=== PATIENT | female | born 1970 | race Caucasian/White ===

== ENCOUNTER 2022-09-20 20:07 | Emergency (ER) | payer SELFPAY ==
--- NOTE | ~2022-09-20 | XR_ITS ---
EXAMINATION: XR chest 1V 09/20/2022 21:22 INDICATION: CVA PROCEDURE: AP view of the chest COMPARISON: No prior studies for comparison. FINDINGS: The lungs are clear. The cardiomediastinal silhouette is within normal limits. There are no pleural effusions. There is no pneumothorax suspected. IMPRESSION: 1: NO ACUTE CARDIOPULMONARY DISEASE. Reviewed, dictated and finalized at location A.
--- NOTE | ~2022-09-20 | CT_ITS ---
EXAMINATION: CTA brain carotid DATE: 09/20/2022 21:18 CDT INDICATION: CVA TECHNIQUE: Computed tomographic angiography (CTA) of the head was performed without and with 100 mL O mnipaque-350 intravenous contrast. CTA of the neck was performed with intravenous contrast. The dose- length product was 906.95 mGy-cm. Maximum intensity projection and volume rendered 3D-reconstructions were created by the technologist on a separate workstation. COMPARISON: CT dated 09/20/2022. FINDINGS: HEAD CTA: The anterior, middle and posterior cerebral arteries are symmetric. The anterior communicat ing artery is present. No evidence for significant stenosis, occlusion or aneurysm. The vertebral art eries are codominant. NECK CTA: No cervical lymphadenopathy. Aorta is within normal limits. No evidence for vascular occlus ion, significant stenosis or dissection. Lung apices are unremarkable. There is 0% stenosis of the proximal right internal carotid artery relative to normal distal artery l umen diameter (NASCET criteria). There is 0% stenosis of the proximal left internal carotid artery re lative to normal distal artery lumen diameter. IMPRESSION: 1. 0% stenosis of the proximal right internal carotid artery relative to normal distal artery lumen d iameter (NASCET criteria). 2. 0% stenosis of the proximal left internal carotid artery relative to normal distal artery lumen di ameter. 3: No significant abnormality of the intracranial arteries. If there is continuing concern for infar ction, recommend correlation with MRI. Reviewed, dictated and finalized at location A. IMPRESSION: 1. 0% stenosis of the proximal right internal carotid artery relative to normal distal artery lumen diameter (NASCET criteria). 2. 0% stenosis of the proximal left internal carotid artery relative to normal distal artery lumen diameter. 3: No significant abnormality of the intracranial arteries. If there is contin uing concern for infarction, recommend correlation with MRI.
--- NOTE | ~2022-09-20 | CT_ITS ---
EXAMINATION: CT BRAIN W/O DATE: 09/20/2022 20:23 INDICATION: CVA. TECHNIQUE: Computed tomography (CT) of the head was performed without intravenous contrast. The dose- length product was 605.33 mGy-cm. Automated exposure control and iterative reconstruction technique w ere employed. COMPARISON: No prior studies for comparison. FINDINGS: Normal brain parenchymal volume for age. Normal kyle-white differentiation. No acute intrac ranial hemorrhage, infarction, mass or mass effect. No ventriculomegaly or midline shift. Midline sagittal images demonstrate a normal corpus callosum, c raniovertebral junction and sella turcica. Basilar cisterns are patent. Paranasal sinuses and mastoids are pneumatized. No depressed skull fractures. IMPRESSION: 1. No acute intracranial abnormality. As per stroke protocol, I called these results to emergency room, discussed with Dr. Kerwin Suarez MD at 09/20/2022 20:25 CDT. Reviewed, dictated and finalized at location A. IMPRESSION: 1. No acute intracranial abnormality. As per stroke protocol, I called these results to emergency room, discussed wit h Dr. Kerwin Suarez MD at 09/20/2022 20:25 CDT.
[2022-09-20 20:21] VITALS: BP 143/90; PULSE 84; RESP 18; TEMP 36.7; O2SAT 100
--- NOTE | 2022-09-20 20:25 | ECG_ITS ---
Measurements Intervals Pinon Rate: 69 P: 30 NC: 164 QRS: 16 QRSD: 82 T: 40 QT: 369 QTc: 398 Interpretive Statements SINUS RHYTHM LOW QRS VOLTAGE IN PRECORDIAL LEADS [QRS DEFLECTION < 1.0 mV IN CHEST LEADS] OTHERWISE NORMAL ELECTROCARDIOGRAM NO PREVIOUS ECG AVAILABLE FOR COMPARISON Electronically Signed On 09-21-2022 7:19:27 CDT by Wu Boyd M.D.
[2022-09-20 20:37] LABS: Basophils Percent Auto 0.8 % (0.2-1.2); Eosinophils Absolute Auto 0.1 K/mm3 (0-0.3); Eosinophils Percent Auto 3.7 % (0-4.4); Hematocrit 39.7 % (37.0-47.0); Hemoglobin 12.9 g/dL (12.0-15.0); Immature Granulocyte Absolute 0.01 K/mm3 (0.00-0.031); Immature Granulocyte Percent A 0.3 % (0-0.5); Lymphocytes Absolute Auto 1.58 K/mm3 (0.9-3.2); Lymphocytes Percent Auto 44.5 % (18.3-44.2); Mean Corpuscular HGB Conc 32.5 g/dl (32-36); Mean Corpuscular Hemoglobin 29.6 pg (26-34); Mean Corpuscular Volume 91.1 fl (80-100); Mean Platelet Volume 9.9 fl (7.4-10.4); Monocytes Absolute Auto 0.6 K/mm3 (0.1-0.6); Monocytes Percent Auto 15.8 % (2.6-8.5); Neutrophils Absolute Auto 1.2 K/mm3 (1.3-6.7); Neutrophils Percent Auto 34.9 % (45.5-73.1); Platelet Count Result 232 k/mm3 (150-375); Red Blood Count 4.36 M/mm3 (4.2-5.4); Red Cell Distribution Width 12.4 % (11.5-14.5); White Blood Count 3.6 K/mm3 (4.5-10.0)
[2022-09-20 20:38] VITALS: PULSE 80; RESP 15
[2022-09-20 20:49] LABS: Alanine Aminotransferase 24 U/L (6-35); Albumin Level 4.1 g/dL (3.5-5.1); Alkaline Phosphatase 102 U/L (38-126); Anion Gap 7 mmol/L (8-16); Aspartate Amino Transferase 30 U/L (14-36); Bilirubin,Total 0.4 mg/dL (0.2-1.3); Blood Urea Nitrogen 13 mg/dL (7-17); Calcium 9.5 mg/dL (8.4-10.2); Carbon Dioxide 28 mmol/L (22-30); Chloride 101 mmol/L (98-107); Estimated Glomerular Filt Rate > 60; Glucose 123 mg/dL (65-110); Potassium 3.7 mmol/L (3.4-5.0); Sodium 136 mmol/L (137-145)
[2022-09-20 20:50] LABS: INR 0.9; Prothrombin Time 12.1 Seconds (11.1-14.7)
[2022-09-20 20:51] LABS: Partial Thromboplastin Time 27.6 SECONDS (22.3-36.8)
[2022-09-20 20:56] LABS: Glucose Point of Care 114 mg/dl (65-105)
[2022-09-20 21:02] VITALS: PULSE 69; RESP 19; O2SAT 98
[2022-09-20 21:04] LABS: Troponin I < 0.012 ng/mL (0.000-0.034)
[2022-09-20 21:13] LABS: Amphetamine Screen Urine Negative (Negative); Barbiturate Screen Urine Negative (Negative); Benzodiazepines Screen Urine Negative (Negative); Cannabinoid Screen Urine Positive (Negative); Cocaine Screen Urine Negative (Negative); Methadone Screen Urine Negative (Negative); Opiate Screen Urine Negative (Negative); Phencyclidine Screen Urine Negative (Negative)
[2022-09-20 21:33] VITALS: PULSE 86; RESP 17
[2022-09-20 21:42] LABS: Pregnancy On Board Control Positive; Urine Pregnancy Test Negative
--- NOTE | 2022-09-20 21:43 | ED.GENADULT ---
HPI - General Adult General Chief complaint: Neuro Symptoms/Deficit Stated complaint: cva symptoms Time Seen by Provider: 09/20/22 20:16 History of Present Illness HPI narrative: 51-year-old female presented the emergency department for evaluation of altered mental status. Patient states that she had dinner at approximately 6 PM and at 645 while she was using the computer she started having some increased difficulty with reading. Patient states that she also felt confused and had some generalized weakness. Upon arrival to the ED patient stated she felt strange but denies any focal numbness or weakness. Patient was able to read and participate in the stroke exam with no deficit. Patient did states she was unsure if she was sleeping or if she was awake. Review of Systems Review of Systems: All systems reviewed & are unremarkable except as noted in HPI and below Exam Narrative: APPEARANCE: Well appearing, no pain, no distress, well-nourished. HEAD: normocephalic, atraumatic. EYES: PERRLA/EOMI, conjunctivae clear. NOSE: Normal no drainage THROAT: Pharynx clear, no exudate. NECK: Supple. No adenopathy, no masses. RESPIRATORY: Airway patent, respirations nonlabored. Clear to auscultation bilaterally, no rales, rhonchi, wheezing. CARDIOVASCULAR: Regular rate and rhythm without murmurs rubs or gallops. ABDOMINAL: Soft, nontender, nondistended, normal bowel sounds MUSCULOSKELETAL: Moves all extremities. Strength/ROM intact, No edema, No calf tenderness. NEURO: Alert. Cranial nerves II through XII intact. Good gait. Good coordination. No ataxia no drift. Normal strength and reflexes SKIN: Warm, dry. Normal Color Course Course Emergency Course: 51-year-old female presenting to the ED for altered mental status. Patient is afebrile with no leukocytosis. Patient's CMP is within normal limits. Patient was positive for cannabinoids. Patient's chest x-ray showed no acute cardiopulmonary normality. Head CT was negative for acute intracranial abnormality. CTA also showed no evidence of acute stroke. Patient states that a family member does use THC but she does not believe she consumed any THC. Patient does appear to be intoxicated on THC. On further examination the patient states that she did have a THC laced chocolate that was her daughter's. Vital Signs Vital signs: Vital Signs Temperature 98.1 F 09/20/22 20:21 Pulse Rate 84 09/20/22 20:21 Respiratory Rate 18 09/20/22 20:21 Blood Pressure 143/90 H 09/20/22 20:21 Pulse Oximetry 100 09/20/22 20:21 Oxygen Delivery Room Air 09/20/22 20:21 Temperature 98.1 F 09/20/22 20:21 Pulse Rate 82 09/20/22 21:50 Respiratory Rate 17 09/20/22 21:45 Blood Pressure 116/68 09/20/22 21:45 Pulse Oximetry 100 09/20/22 21:45 Oxygen Delivery Room Air 09/20/22 20:21 Medical Decision Making Differential Diagnosis Differential Diagnosis: CVA, altered mental status, THC intoxication, TIA. Vital Signs Vital Signs: Vital Signs Temperature 98.1 F 09/20/22 20:21 Pulse Rate 84 09/20/22 20:21 Respiratory Rate 18 09/20/22 20:21 Blood Pressure 143/90 H 09/20/22 20:21 Pulse Oximetry 100 09/20/22 20:21 Oxygen Delivery Room Air 09/20/22 20:21 Temperature 98.1 F 09/20/22 20:21 Pulse Rate 82 09/20/22 21:50 Respiratory Rate 17 09/20/22 21:45 Blood Pressure 116/68 09/20/22 21:45 Pulse Oximetry 100 09/20/22 21:45 Oxygen Delivery Room Air 09/20/22 20:21 Lab Data Lab results reviewed: Yes I reviewed the patient's lab results. 09/20/22 20:33 09/20/22 20:33 Labs: Lab Results 09/20/22 09/20/22 09/20/22 Range/Units 20:33 20:33 20:33 WBC 3.6 L (4.5-10.0) K/mm3 RBC 4.36 (4.2-5.4) M/mm3 Hgb 12.9 (12.0-15.0) g/dL Hct 39.7 (37.0-47.0) % MCV 91.1 (80-100) fl MCH 29.6 (26-34) pg MCHC 32.5 (32-36) g/dl RDW 12.4 (11.5-14.5) % Plt Count 232 (150-375) k/mm3 M
[2022-09-20 21:45] VITALS: BP 116/68; PULSE 94; RESP 17; O2SAT 100
[2022-09-20 21:50] VITALS: PULSE 82
== END 2022-09-20 22:34 | disposition home or self-care (01) ==
LOC: ANHED 21:58
PROVIDERS: Emergency Provider Emergency Medicine
DX: R41.0 Disorientation, unspecified (principal); F12.929 Cannabis use, unspecified with intoxication, unspecified
CPT/HCPCS: 36415; 70450; 70496; 70498; 71045; 80053; 80307; 81025; 82948; 84484; 85025; 85610; 85730; 93005; 99284; Q9967